=== PATIENT | female | born 1930 | race Caucasian/White ===

== ENCOUNTER 2019-09-13 10:51 | Emergency (ER) | payer MEDICARE, MEDICAID ==
[~2019-09-13] VITALS: Ht 157.4 cm; Wt 47.7 kg
[~2019-09-13 10:51] MED LIST: AMPI500C9 PO; DOCU100C37 PO; IBUP-1773 PO; MIRT15TA PO
--- NOTE | 2019-09-13 11:26 | ED General ---
General Chief Complaint: Respiratory Problems Stated Complaint: RESP DISTRESS Nursing Triage Note: Pt to ED via EMS from [facility]. Pt has dementia and does not speak. EMS reports being called because pt had O2 sat in the 60% and then 80%, for sinus drainage, and "jerking." Upon arrival to ED pt exhibited no signs of distress, pt was calm and not jerking. Pt's O2 sat is 100% on room air. Nursing Sepsis Screen: No Definite Risk History of Present Illness Date Seen by Provider: Sep 13, 2019 Time Seen by Provider: 11:26 Initial Comments 89-year-old female sent in from the [facility]. Patient has dementia and does not provide any information. long-term reports that they called EMS because she had low saturations on pulse ox 60% and then 80%. EMS was called who reports she was 100% on room air when they arrived. long-term also reports that there was some "jerking" the patient has not displayed any evidence of this for either EMS or us. long-term also reports that she's been having some sinus drainage, no reports of fever cough or other systemic complaints Allergies and Home Medications Allergies Coded Allergies: No Known Drug Allergies (Unverified , 07/20/15) Home Medications Ampicillin Trihydrate 500 Mg Capsule, 500 MG PO Q6H Prescribed by: ROSE MARY FIORE on 07/22/15 1309 Docusate Sodium 100 Mg Capsule, 100 MG PO BID Prescribed by: ROSE MARY FIORE on 07/22/15 1308 Ibuprofen 600 Mg Tablet, 600 MG PO Q6H 1/2 tab po q 6 hrs prn Prescribed by: ROSE MARY FIORE on 07/22/15 1308 Mirtazapine 15 Mg Tablet, 15 MG PO HS, (Reported) Patient Home Medication List Home Medication List Reviewed: Yes Review of Systems Review of Systems Constitutional: No chills, No fever Respiratory: see HPI Unable to obtain review of systems outside in the EMS, [facility] report due to patient's dementia Past Rnzvicx-Mizymh-Tjfzio Hx Past Med/Social Hx: Reviewed Nursing Past Med/Soc Hx Patient Social History Alcohol Use: Denies Use Recreational Drug Use: No 2nd Hand Smoke Exposure: No Recent Foreign Travel: No Contact w/Someone Who Travel: No Recent Infectious Disease Expo: No Immunizations Up To Date Date of Influenza Vaccine: May 28, 2015 Past Medical History Surgeries: No Respiratory: No Cardiac: No Neurological: Yes (GETS CONFUSED EASILY) Gastrointestinal: No Musculoskeletal: No Endocrine: No Cancer: No Psychosocial: No Integumentary: No Blood Disorders: No Family Medical History Alcoholism 19 FATHER Physical Exam Vital Signs Vital Signs - First Documented 09/13/19 10:51 Temp 35.9 Pulse 72 Resp 14 B/P (MAP) 134/72 (92) Pulse Ox 100 O2 Delivery Room Air Capillary Refill : Less Than 3 Seconds Height, Weight, BMI Height: 4'10.00" Weight: 98lbs. oz. 44.236963ik; 19.00 BMI Method: General Appearance: No Apparent Distress, WD/WN Neck: Non Tender, Supple Respiratory: Lungs Clear, Normal Breath Sounds Cardiovascular: Regular Rate, Rhythm, No Edema Gastrointestinal: Non Tender, Soft Extremity: Normal Capillary Refill Neurologic/Psychiatric: Other (no acute changes, no abnormal movement) Progress/Results/Core Measures Suspected Sepsis Recent Fever Within 48 Hours: No Infection Criteria Present: None New/Unexplained Altered Menta: No Sepsis Screen: No Definite Risk SIRS Temperature: Pulse: 72 Respiratory Rate: 14 Laboratory Tests 09/13/19 11:55: Blood Pressure 134 /72 Mean: 92 Laboratory Tests 09/13/19 11:55: Results/Orders Lab Results Laboratory Tests Test 09/13/19 11:55 Range/Units Micro Results Microbiology 09/13/19 Influenza Types A,B Antigen (STEPH) - Final, Complete My Orders Orders - CHUCHO BUCK DO Cbc With Automated Diff (09/13/19 11:26) Comprehensive Metabolic Panel (09/13/19 11:26) Influenza A And B Antigens (09/13/19 11:26) Chest Pa/Lat (2 View) (09/13/19 11:26) Vital Signs/I&O 09/13/19 10:51 Temp 35.9 Pulse 72 Resp 14 B/P (MAP) 134/72 (92) Pulse Ox 100 O2 Delivery Room Air Capillary Refill : Less Than 3 Seconds Blood Pressure Mean: 92 Progress Note : Time: 12:44 Progress Note Patient was monitored for an hour and a half and her pulse ox never went below 100%. She was no acute changes and did fine throughout the stay. She will be discharged back to the [facility] in stable condition Departure Impression Primary Impression: Observation and evaluation for suspected conditions not found Disposition: 01 HOME, SELF-CARE Condition: Stable Departure-Patient Inst. Referrals: YASHIRA SANCHEZ MD (PCP/Family) Primary Care Physician Add. Discharge Instructions: Emergency department focuses on treating and ruling out life-threatening diseases. Whenever possible, a diagnosis is given. However, most patients are given an impression based on their history, physical exam, and workup during your brief time in the ER. Information about probable diagnosis and other educational material has been provided. Please take the time to read and understand this information. It is very important that you follow up with a physician as discussed during the visit today. Failure to adhere to your follow-up instructions may lead to severe disability, injury, or so please make sure to keep your appointments or obtain one as requested. Please keep in mind the emergency department is not designed to your primary care or "family doctor" and nonurgent issues are best evaluated by an outpatient physician All discharge instructions reviewed with patient and/or family. Voiced understanding. CHUCHO BUCK DO Sep 13, 2019 11:25
--- NOTE | 2019-09-13 12:27 | Diagnostic Imaging Report ---
INDICATION: Hypoxia. PA and lateral chest obtained at 1213 p.m. Heart and mediastinal silhouette are normal in appearance. The lungs are clear. There is no pneumothorax or pleural fluid. There are compression deformities in the lower thoracic spine of unclear age. IMPRESSION: No acute infiltrate or pneumothorax or pleural fluid. Compression deformities in the lower thoracic spine of uncertain age. Dictated by: Dictated on workstation # [id number]
[2019-09-13 12:46] LABS: BASOPHILS % (AUTO) 1 % (0-10); EOSINOPHILS # (AUTO) 0.1 10^3/uL (0.0-0.3); EOSINOPHILS % (AUTO) 2 % (0-10); HEMATOCRIT 41 % (35-52); HEMOGLOBIN 12.8 G/DL (11.5-16.0); LYMPHOCYTES # (AUTO) 1.2 X 10^3 (1.0-4.0); LYMPHOCYTES % (AUTO) 27 % (12-44); MEAN CORPUSCULAR HEMOGLOBIN 29 PG (25-34); MEAN CORPUSCULAR HGB CONC 31 G/DL (32-36); MEAN CORPUSCULAR VOLUME 95 FL (80-99); MEAN PLATELET VOLUME 11.5 FL (7.4-10.4); MONOCYTES # (AUTO) 0.5 X 10^3 (0.0-1.0); MONOCYTES % (AUTO) 10 % (0-12); NEUTROPHILS # (AUTO) 2.6 X 10^3 (1.8-7.8); NEUTROPHILS % (AUTO) 61 % (42-75); PLATELET COUNT 236 10^3/uL (130-400); WHITE BLOOD COUNT 4.4 10^3/uL (4.3-11.0)
[2019-09-13 13:01] LABS: ALBUMIN 3.7 GM/DL (3.2-4.5); BILIRUBIN,TOTAL 0.5 MG/DL (0.1-1.0); CALCIUM 8.9 MG/DL (8.5-10.1); CREATININE SERUM 1.11 MG/DL (0.60-1.30); POTASSIUM 3.9 MMOL/L (3.6-5.0); TOTAL PROTEIN 6.9 GM/DL (6.4-8.2)
[2019-09-13 13:20] VITALS: BP 121/72
[2019-09-17] MEDS ORDERED: FLUC150T PO (08:59)
[2019-09-17] MEDS ORDERED: CEPH500T PO (08:59)
== END 2019-09-13 13:20 | disposition home or self-care (01) ==
LOC: EDUNIT# 10:51 → ER 10:53
DX: Z03.89 Encounter for observation for other suspected diseases and conditions ruled out (principal); F03.90 Unspecified dementia, unspecified severity, without behavioral disturbance, psychotic disturbance, mood disturbance, and anxiety
CPT/HCPCS: 36415; 71046; 80053; 85025; 87804

== ENCOUNTER 2019-09-15 11:18 | Inpatient (IN) | payer MEDICARE, MEDICAID ==
[2019-09-15] VITALS (12 sets, daily range): BP systolic 108–148; BP diastolic 62–93
[~2019-09-15] VITALS: Ht 160 cm; Wt 49.2 kg
--- NOTE | 2019-09-15 11:36 | NUR ---
UNABLE TO DO NIH DUE PATIENT NOT RESPONDING.
[2019-09-15 11:37] LABS: BASOPHILS % (AUTO) 0 % (0-10); EOSINOPHILS # (AUTO) 0.1 10^3/uL (0.0-0.3); EOSINOPHILS % (AUTO) 1 % (0-10); HEMATOCRIT 41 % (35-52); HEMOGLOBIN 12.9 G/DL (11.5-16.0); LYMPHOCYTES # (AUTO) 3.9 X 10^3 (1.0-4.0); LYMPHOCYTES % (AUTO) 46 % (12-44); MEAN CORPUSCULAR HEMOGLOBIN 30 PG (25-34); MEAN CORPUSCULAR HGB CONC 32 G/DL (32-36); MEAN CORPUSCULAR VOLUME 94 FL (80-99); MEAN PLATELET VOLUME 10.9 FL (7.4-10.4); MONOCYTES # (AUTO) 0.6 X 10^3 (0.0-1.0); MONOCYTES % (AUTO) 7 % (0-12); NEUTROPHILS # (AUTO) 3.9 X 10^3 (1.8-7.8); NEUTROPHILS % (AUTO) 46 % (42-75); PLATELET COUNT 257 10^3/uL (130-400); RED CELL DISTRIBUTION WIDTH 13.8 % (10.0-14.5); WHITE BLOOD COUNT 8.4 10^3/uL (4.3-11.0)
--- NOTE | 2019-09-15 11:41 | NUR ---
PATIENT FALIED ON DYSPHAGIA SCREEING DUE TO SHE IS UNRSPONSIVE
--- NOTE | 2019-09-15 11:52 | NUR ---
DR MENDOZA TO ROOM TO TALK WITH FAMILY
[2019-09-15 11:55] LABS: ALANINE AMINOTRANSFERASE 6 U/L (0-55); ALBUMIN 3.7 GM/DL (3.2-4.5); ALKALINE PHOSPHATASE 104 U/L (40-136); BILIRUBIN,TOTAL 0.6 MG/DL (0.1-1.0); BUN/CREATININE RATIO 10; CALCIUM 8.8 MG/DL (8.5-10.1); CARBON DIOXIDE 21 MMOL/L (21-32); CHLORIDE 107 MMOL/L (98-107); CREATININE SERUM 1.26 MG/DL (0.60-1.30); GFR ESTIMATED 40; GLUCOSE 253 MG/DL (70-105); POTASSIUM 3.5 MMOL/L (3.6-5.0); SODIUM 142 MMOL/L (135-145); TOTAL PROTEIN 6.7 GM/DL (6.4-8.2)
--- NOTE | 2019-09-15 12:21 | Diagnostic Imaging Report ---
PROCEDURE: CT head wo r/o stroke. TECHNIQUE: Multiple contiguous axial images were obtained through the brain without the use of intravenous contrast. Auto Exposure Controls were utilized during the CT exam to meet ALARA standards for radiation dose reduction. Indication: Altered mental status, found unresponsive. Comparison: None. Discussion: Exam is degraded by motion. Significant diffuse brain volume loss is likely age related. White matter hypoattenuation is nonspecific though not greater than expected for age related chronic small vessel ischemic disease. 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 No acute intracranial hemorrhage, mass, midline shift, or hydrocephalus. The orbits, sinuses, mastoid air cells, and calvarium are unremarkable. Impression: 1. Senescent changes as described. No acute intracranial abnormality identified. Dictated by: Dictated on workstation # [id number]
--- NOTE | 2019-09-15 12:26 | Diagnostic Imaging Report ---
INDICATION: Dyspnea, altered mental status. COMPARISON: 09/13/2019. DISCUSSION: Single portable upright view of the chest was obtained. Low lung volumes. Heart borders are obscured. No consolidation, pleural fluid, or pneumothorax. No osseous abnormality. IMPRESSION: 1. Negative portable chest. Dictated by: Dictated on workstation # [id number]
[2019-09-15 12:33] LABS: FIBRIN DEGRADATION PRODUCTS 4.68 UG/ML (0.00-0.49)
--- NOTE | 2019-09-15 12:36 | NUR ---
[facility] CALLED UPDATE GIVEN.
[2019-09-15] MEDS ORDERED: ONDANSETRON 4 MG/2 ML (SDV) Z0FRAN IVP ONE (13:00)
[2019-09-15] MEDS ORDERED: morphine INJ 10 MG/ML 1ML (SYR OR VIAL) IVP STA (13:42)
[2019-09-15] MEDS ORDERED: IOHEXOL 350 MG/ML 100 ML (OMNIPAQUE 350) VIAL IV ONE (14:15)
[2019-09-15] MEDS ORDERED: NS 100 ML (IVPB) BAG IV ONE (14:15)
[2019-09-15] MEDS ORDERED: HOLD METFORMIN - RECEIVED CONTRAST 20 ML VIAL IV SCH (14:15)
--- NOTE | 2019-09-15 14:30 | ED General ---
General Chief Complaint: Unresponsive Stated Complaint: RESP ISSUES Nursing Triage Note: ARRIVED VIA EMS FROM [facility]. WAS FOUND UNRESPONSIVE AT [facility]. EMS REPORTS POLICE SCOOPED COPIOUS AMTS OF CEREAL OUT OF HER MOUTH ON THEIR ARRIVAL. ARRIVED TO ER UNRESPONSIVE ET BEING BAGGED WITH A BVM. Nursing Sepsis Screen: Possible Sepsis Risk Source of Information: EMS, Family Exam Limitations: Physical Impairments History of Present Illness Date Seen by Provider: Sep 15, 2019 Time Seen by Provider: 11:20 Initial Comments This 89-year-old woman presents to the emergency room via EMS from [facility] where she had an unresponsive episode and was choking. It is unclear whether she became unresponsive and choked or choked and then became unresponsive. She was eating Cheerios at the time. Please officer who was first on scene swept food from her mouth. CODE STATUS was not immediately accessible. EMS provided respiratory assist with an Ambu bag. Patient was found to be a DO NOT RESUSCITATE. She was transferred to the emergency room where she was maintaining oxygen saturations on a high flow mask. Patient has advanced dementia. She is able to walk and feed herself but otherwise requires assistance with activities of daily living. She has a son in [facility] who is the power of criminal defense attorney. Family does report she has difficulty eating and requires soft foods. Allergies and Home Medications Allergies Coded Allergies: No Known Drug Allergies (Unverified , 07/20/15) Home Medications Ampicillin Trihydrate 500 Mg Capsule, 500 MG PO Q6H Prescribed by: ROSE MARY FIORE on 07/22/15 1309 Docusate Sodium 100 Mg Capsule, 100 MG PO BID Prescribed by: ROSE MARY FIORE on 07/22/15 1308 Ibuprofen 600 Mg Tablet, 600 MG PO Q6H 1/2 tab po q 6 hrs prn Prescribed by: ROSE MARY FIORE on 07/22/15 1308 Mirtazapine 15 Mg Tablet, 15 MG PO HS, (Reported) Patient Home Medication List Home Medication List Reviewed: Yes Review of Systems Review of Systems Constitutional: no symptoms reported EENTM: no symptoms reported Respiratory: see HPI Cardiovascular: no symptoms reported Gastrointestinal: no symptoms reported Genitourinary: no symptoms reported Musculoskeletal: no symptoms reported Skin: no symptoms reported Psychiatric/Neurological: See HPI Hematologic/Lymphatic: No Symptoms Reported Immunological/Allergic: no symptoms reported Past Mruaedq-Izkksp-Vvonkv Hx Past Med/Social Hx: Reviewed Nursing Past Med/Soc Hx Patient Social History Alcohol Use: Denies Use Recreational Drug Use: No Smoking Status: Unknown if Ever Smoked 2nd Hand Smoke Exposure: No Recent Foreign Travel: No Contact w/Someone Who Travel: No Recent Infectious Disease Expo: No Immunizations Up To Date Date of Influenza Vaccine: May 28, 2015 Past Medical History Surgeries: No Respiratory: No Cardiac: No Neurological: Yes Dementia Genitourinary: No Gastrointestinal: No Musculoskeletal: No Endocrine: No Cancer: No Psychosocial: No Integumentary: No Blood Disorders: No Family Medical History Alcoholism 19 FATHER Physical Exam Vital Signs Vital Signs - First Documented 09/15/19 11:18 Temp 35.0 Pulse 98 Resp 20 B/P (MAP) 130/76 (94) Pulse Ox 98 O2 Delivery OxyMask O2 Flow Rate 8.00 Capillary Refill : Less Than 3 Seconds Height, Weight, BMI Height: 4'10.00" Weight: 98lbs. oz. 44.896092ty; 17.00 BMI Method: General Appearance: No Apparent Distress, WD/WN, Thin, Other (unresponsive) HEENT: PERRL/EOMI, Normal ENT Inspection, Other (small contents of food evacuated from the oral pharynx with suction.) Neck: Normal Inspection Respiratory: Lungs Clear, No Accessory Muscle Use, No Respiratory Distress, Stridor Cardiovascular: No Edema, No Murmur, Tachycardia Gastrointestinal: Normal Bowel Sounds, Non Tender, Soft Extremity: Normal Inspection, No Pedal Edema Neurologic/Psychiatric: Other (unresponsive) Skin: Normal Color, Warm/Dry Progress/Results/Core Measures Suspected Sepsis Recent Fever Within 48 Hours: No Infection Criteria Present: Suspected New Infection New/Unexplained Altered Menta: No Sepsis Screen: Possible Sepsis Risk SIRS Temperature: Pulse: 98 Respiratory Rate: 20 Laboratory Tests 09/15/19 11:30: White Blood Count 8.4 Blood Pressure 130 /76 Mean: 94 Laboratory Tests 09/15/19 11:30: Creatinine 1.26, INR Comment 1.0, Platelet Count 257, Total Bilirubin 0.6 Results/Orders Lab Results Laboratory Tests Test 09/15/19 11:30 09/15/19 15:17 Range/Units White Blood Count 8.4 4.3-11.0 10^3/uL Red Blood Count 4.36 4.35-5.85 10^6/uL Hemoglobin 12.9 11.5-16.0 G/DL Hematocrit 41 35-52 % Mean Corpuscular Volume 94 80-99 FL Mean Corpuscular Hemoglobin 30 25-34 PG Mean Corpuscular Hemoglobin Concent 32 32-36 G/DL Red Cell Distribution Width 13.8 10.0-14.5 % Platelet Count 257 130-400 10^3/uL Mean Platelet Volume 10.9 H 7.4-10.4 FL Neutrophils (%) (Auto) 46 42-75 % Lymphocytes (%) (Auto) 46 H 12-44 % Monocytes (%) (Auto) 7 0-12 % Eosinophils (%) (Auto) 1 0-10 % Basophils (%) (Auto) 0 0-10 % Neutrophils # (Auto) 3.9 1.8-7.8 X 10^3 Lymphocytes # (Auto) 3.9 1.0-4.0 X 10^3 Monocytes # (Auto) 0.6 0.0-1.0 X 10^3 Eosinophils # (Auto) 0.1 0.0-0.3 10^3/uL Basophils # (Auto) 0.0 0.0-0.1 10^3/uL Prothrombin Time 14.0 12.2-14.7 SEC INR Comment 1.0 0.8-1.4 Activated Partial Thromboplast Time 26 24-35 SEC D-Dimer 4.68 H 0.00-0.49 UG/ML Sodium Level 142 135-145 MMOL/L Potassium Level 3.5 L 3.6-5.0 MMOL/L Chloride Level 107 98-107 MMOL/L Carbon Dioxide Level 21 21-32 MMOL/L Anion Gap 14 5-14 MMOL/L Blood Urea Nitrogen 12 7-18 MG/DL Creatinine 1.26 0.60-1.30 MG/DL Estimat Glomerular Filtration Rate 40 BUN/Creatinine Ratio 10 Glucose Level 253 H 70-105 MG/DL Calcium Level 8.8 8.5-10.1 MG/DL Corrected Calcium 9.0 8.5-10.1 MG/DL Total Bilirubin 0.6 0.1-1.0 MG/DL Aspartate Amino Transf (AST/SGOT) 22 5-34 U/L Alanine Aminotransferase (ALT/SGPT) 6 0-55 U/L Alkaline Phosphatase 104 40-136 U/L Troponin I < 0.028 <0.028 NG/ML Total Protein 6.7 6.4-8.2 GM/DL Albumin 3.7 3.2-4.5 GM/DL My Orders Orders - RENEE CASAREZ MD Cbc With Automated Diff (09/15/19 11:31) Protime With Inr (09/15/19 11:31) Partial Thromboplastin Time (09/15/19 11:31) Comprehensive Metabolic Panel (09/15/19 11:31) Fibrin Degradation Products (09/15/19 11:31) Troponin I (09/15/19 11:31) Ua Culture If Indicated (09/15/19 11:31) Chest 1 View, Ap/Pa Only (09/15/19 11:31) Catheter(Urinary) Insert & Ass 03,15 (09/15/19 11:31) Ekg Tracing (09/15/19 11:31) Nothing By Mouth (09/15/19 Dinner) Accucheck Stat ONCE (09/15/19 11:31) Ed Iv/Invasive Line Start (09/15/19 11:31) Ed Iv/Invasive Line Start (09/15/19 11:31) Vital Signs Stroke Patient Q15M (09/15/19 11:31) Ct Head Wo-R/O Stroke (09/15/19 11:31) O2 (09/15/19 11:31) Intake & Output 06,14,22 (09/15/19 11:31) Monitor-Rhythm Ecg Trace Only (09/15/19 11:31) Dysphagia Screening Tool (09/15/19 11:31) Post Thrombolytic Adminstratio (09/15/19 11:31) Lipid Panel (09/16/19 06:00) Ondansetron Injection (Zofran Injectio (09/15/19 13:00) Ct Angio Chest W (09/15/19 13:40) Ct Neck (Soft Tissue) W (09/15/19 13:40) Morphine Injection (Morphine Injection (09/15/19 13:42) Iohexol Injection (Omnipaque 350 Mg/Ml 1 (09/15/19 14:15) Received Contrast (Hold Metformin- Contr (09/15/19 14:15) Ns (Ivpb) (Sodium Chloride 0.9% Ivpb Bag (09/15/19 14:15) Iqbal Cath (09/15/19 14:47) Zosyn 4.5 Gm (X1)Ed Only (09/15/19 15:30) Medications Given in ED Current Medications Medications Dose Ordered Sig/Marcio Route Start Time Stop Time Status Last Admin Dose Admin Iohexol 100 ml ONCE ONCE IV 09/15/19 14:15 09/15/19 14:16 DC 09/15/19 14:23 52 ML Ondansetron HCl 4 mg ONCE ONCE IVP 09/15/19 13:00 09/15/19 13:01 DC 09/15/19 13:13 4 MG Sodium Chloride 100 ml ONCE ONCE IV 09/15/19 14:15 09/15/19 14:16 DC 09/15/19 14:23 80 ML Vital Signs/I&O 09/15/19 09/15/19 11:18 11:18 Temp 35.0 Pulse 98 Resp 20 B/P (MAP) 130/76 (94) Pulse Ox 98 O2 Delivery OxyMask OxyMask O2 Flow Rate 8.00 15.00 Capillary Refill : Less Than 3 Seconds Blood Pressure Mean: 94 Progress Note : Progress Note Stroke activation was paged. Patient's oxygen saturation was maintained on high flow mask. Labs were unremarkable. Chest x-ray was unremarkable. CT of the head was unremarkable. I discussed the case with Dr. Caruso, stroke neurologist at [facility] at 12:50. She did not believe patient's presentation was consistent with stroke. Patient gradually became more alert and was moving all 4 extremities. She did develop stridor. I had an extensive conversation with the patient's son and [id number]. Options were reviewed. We elected to proceed with a CT scan of the chest and soft tissues of the neck to investigate causes of her respiratory status including aspiration and foreign body. CT scans revealed food bolus and contents in the throat, under the epiglottis, and in the trachea. Case was reviewed with Dr. Diaz. He is agreeable to perform bronchoscopy to remove food boluses and evacuate any debris in the trachea. Family is aware that they will need to revoke the DO NOT INTUBATE portion of the DO NOT RESUSCITATE to support her during bronchoscopy. Patient's son is agreeable to this. We both feel this is an appropriate course of action and the compassionate course of action to alleviate the patient's difficulty breathing. Morphine 2 mg was administered to help with pain and air hunger. Patient remained stable until transfer to ICU. ECG Initial ECG Impression Date: Sep 15, 2019 Initial ECG Impression Time: 11:42 Initial ECG Rate: 92 Initial ECG Rhythm: Normal Sinus Comment Normal sinus rhythm, no ST elevation or depression. No abnormal intervals or axis deviation. Diagnostic Imaging Diagonstic Imaging: CT Plain Films/CT/US/NM/MRI: head Comments CT head viewed by me and report reviewed. See report below: NAME: JUAN DANIELS [facility] REC#: [id number] PT STATUS: REG ER : 1930 PHYSICIAN: RENEE CASAREZ MD ADMIT DATE: 09/15/19/ER Signed Date of Exam:09/15/19 CT HEAD WO-R/O STROKE PROCEDURE: CT head wo r/o stroke. TECHNIQUE: Multiple contiguous axial images were obtained through the brain without the use of intravenous contrast. Auto Exposure Controls were utilized during the CT exam to meet ALARA standards for radiation dose reduction. Indication: Altered mental status, found unresponsive. Comparison: None. Discussion: Exam is degraded by motion. Significant diffuse brain volume loss is likely age related. White matter hypoattenuation is nonspecific though not greater than expected for age related chronic small vessel ischemic disease. 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 No acute intracranial hemorrhage, mass, midline shift, or hydrocephalus. The orbits, sinuses, mastoid air cells, and calvarium are unremarkable. Impression: 1. Senescent changes as described. No acute intracranial abnormality identified. Dictated by: Dictated on workstation # [id number] Dict: 09/15/19 1214 Trans: 09/15/19 1408 [id number] Interpreted by: ATIYA WOODWARD MD Electronically signed by: ATIYA WOODWARD MD 09/15/19 1408 Diagonstic Imaging: Xray Plain Films/CT/US/NM/MRI: chest Comments Chest x-ray viewed by me and report reviewed. See report below: NAME: [facility]ANI[facility] REC#: [id number] PT STATUS: REG ER : 1930 PHYSICIAN: RENEE CASAREZ MD ADMIT DATE: 09/15/19/ER Signed Date of Exam:09/15/19 CHEST 1 VIEW, AP/PA ONLY INDICATION: Dyspnea, altered mental status. COMPARISON: 09/13/2019. DISCUSSION: Single portable upright view of the chest was obtained. Low lung volumes. Heart borders are obscured. No consolidation, pleural fluid, or pneumothorax. No osseous abnormality. IMPRESSION: 1. Negative portable chest. Dictated by: Dictated on workstation # [id number] Dict: 09/15/19 1224 Trans: 09/15/19 1408 AS6 [id number] Interpreted by: ATIYA WOODWARD MD Electronically signed by: ATIYA WOODWARD MD 09/15/19 1408 Diagonstic Imaging: CT Plain Films/CT/US/NM/MRI: other (soft tissues neck) Comments CT soft tissues neck viewed by me and report reviewed. See report below: NAME: [facility] REC#: [id number] PT STATUS: REG ER : 1930 PHYSICIAN: RENEE CASAREZ MD ADMIT DATE: 09/15/19/ER Signed Date of Exam:09/15/19 CT NECK (SOFT TISSUE) W PROCEDURE: CT neck soft tissue with contrast. TECHNIQUE: Multiple contiguous axial images were obtained through the neck after the administration of contrast. Auto Exposure Controls were utilized during the CT exam to meet ALARA standards for radiation dose reduction. INDICATION: Shortness of air. COMPARISON: CTA chest performed concurrently. FINDINGS: There is an ovoid low-attenuation circumscribed mass-like focus located along the inferior margin of the uvula. Below this, there are some frothy secretions present. The airway is widely patent elsewhere and this mass-like focus does not occlude the airway. Lung apices are clear. Neck arteries are unremarkable. No concerning abnormality in the cervical spine. Global atrophy is seen within the visualized aspects of the brain. IMPRESSION: 1. There is a nonaggressive mass-like lesion at the inferior aspect of the uvula which could represent a globular focus of retained secretions. Otherwise, this may represent a fatty exophytic tumor arising from the uvula, which is felt less likely as this would be very rare. Correlation with direct visualization is suggested. Dictated by: Dictated on workstation # [id number] Dict: 09/15/19 1435 Trans: 09/15/19 1451 [id number] [id number] Interpreted by: RAPHAEL NELSON MD Electronically signed by: RAPHAEL NELSON MD 09/15/19 1454 Diagonstic Imaging: CT Plain Films/CT/US/NM/MRI: chest Comments CT angiogram chest viewed by me and report reviewed. See report below: NAME: [facility] REC#: [id number] PT STATUS: REG ER : 1930 PHYSICIAN: RENEE CASAREZ MD ADMIT DATE: 09/15/19/ER Draft Date of Exam:09/15/19 CT ANGIO CHEST W PROCEDURE: CT angiography of the chest with contrast. TECHNIQUE: Multiple contiguous axial images were obtained through the chest after uneventful bolus administration of intravenous contrast. 3D reconstructed CTA MIP acquisitions were also performed. Auto Exposure Controls were utilized during the CT exam to meet ALARA standards for radiation dose reduction. Indication: Dyspnea. Unresponsive. Comparison: None. Discussion: No focal consolidation identified. No pulmonary embolus identified. Subsegmental atelectasis is noted within the lung bases. Normal heart size. The thoracic aorta is normal in caliber and configuration. No pathologically enlarged lymph nodes identified. The visualized upper abdomen is unremarkable. Multiple compression deformities are noted throughout the thoracic and lumbar spine involving the T2, T4, T11, T12, L1, and L2 vertebral bodies as visualized, age indeterminate. Impression: 1. No pulmonary embolus or other acute abnormality identified within the chest. 2. Multiple age-indeterminate compression deformities within the thoracic and lumbar spine. Dictated on workstation # [id number] Dict: 09/15/19 1435 Trans: 09/15/19 1441 TS [id number] Interpreted by: ATIYA WOODWARD MD Departure Communication (Admissions) Time/Spoke to Admitting Phy: 15:16 Dr. De Oliveira Time/Spoke to Consulting Phy: 14:48 Dr. Diaz Impression Primary Impression: Aspiration of food Qualified Codes: T17.920A - Food in respiratory tract, part unspecified causing asphyxiation, initial encounter Additional Impressions: Unresponsive episode Hypoxia Advanced dementia Disposition: ADMITTED INPATIENT Condition: Stable Admissions Decision to Admit Reason: Admit from ER (General) Decision to Admit/Date: Sep 15, 2019 Time/Decision to Admit Time: 14:48 Departure-Patient Inst. Referrals: YASHIRA SANCHEZ MD (PCP/Family) Primary Care Physician Copy Copies To 1: YASHIRA SANCHEZ MD, JOSHUA T MD Sep 15, 2019 14:30
--- NOTE | 2019-09-15 14:41 | Diagnostic Imaging Report ---
PROCEDURE: CT angiography of the chest with contrast. TECHNIQUE: Multiple contiguous axial images were obtained through the chest after uneventful bolus administration of intravenous contrast. 3D reconstructed CTA MIP acquisitions were also performed. Auto Exposure Controls were utilized during the CT exam to meet ALARA standards for radiation dose reduction. Indication: Dyspnea. Unresponsive. Comparison: None. Discussion: No focal consolidation identified. No pulmonary embolus identified. Subsegmental atelectasis is noted within the lung bases. Normal heart size. The thoracic aorta is normal in caliber and configuration. No pathologically enlarged lymph nodes identified. The visualized upper abdomen is unremarkable. Multiple compression deformities are noted throughout the thoracic and lumbar spine involving the T2, T4, T11, T12, L1, and L2 vertebral bodies as visualized, age indeterminate. Impression: 1. No pulmonary embolus or other acute abnormality identified within the chest. 2. Multiple age-indeterminate compression deformities within the thoracic and lumbar spine. Dictated by: Dictated on workstation # [id number]
--- NOTE | 2019-09-15 14:45 | Diagnostic Imaging Report ---
PROCEDURE: CT neck soft tissue with contrast. TECHNIQUE: Multiple contiguous axial images were obtained through the neck after the administration of contrast. Auto Exposure Controls were utilized during the CT exam to meet ALARA standards for radiation dose reduction. INDICATION: Shortness of air. COMPARISON: CTA chest performed concurrently. FINDINGS: There is an ovoid low-attenuation circumscribed mass-like focus located along the inferior margin of the uvula. Below this, there are some frothy secretions present. The airway is widely patent elsewhere and this mass-like focus does not occlude the airway. Lung apices are clear. Neck arteries are unremarkable. No concerning abnormality in the cervical spine. Global atrophy is seen within the visualized aspects of the brain. IMPRESSION: 1. There is a nonaggressive mass-like lesion at the inferior aspect of the uvula which could represent a globular focus of retained secretions. Otherwise, this may represent a fatty exophytic tumor arising from the uvula, which is felt less likely as this would be very rare. Correlation with direct visualization is suggested. Dictated by: Dictated on workstation # [id number]
[2019-09-15 15:23] LABS: BILIRUBIN,URINE NEGATIVE (NEGATIVE); CLARITY,URINE SL CLOUDY; COLOR,URINE YELLOW; GLUCOSE, URINE (UA) NEGATIVE (NEGATIVE); KETONES,URINE 1+ (NEGATIVE); LEUKOCYTE ESTERASE ,URINE TRACE (NEGATIVE); NITRITE,URINE NEGATIVE (NEGATIVE); PH,URINE 5.5 (5-9); PROTEIN,URINE NEGATIVE (NEGATIVE)
[2019-09-15 15:25] LABS: RBC,URINE RARE /HPF; WBC,URINE RARE /HPF
[2019-09-15 15:26] LABS: BACTERIA,URINE LARGE /HPF; HYALINE CASTS, URINE RARE /LPF; SQUAMOUS EPITHELIAL CELL,UR RARE /HPF
[2019-09-15] MEDS ORDERED: proPOfol 200 MG/20 ML (DIPRIVAN) VIAL IV ONE (15:27)
[2019-09-15] MEDS ORDERED: PIPERACILLIN SODIUM/TAZOBACTAM 4.5 GM in NS (IVPB) 100 ML IV ONE (15:30)
--- NOTE | 2019-09-15 15:40 | NUR ---
JUAN DANIELS Sameera admitted to room CU9-1, with an admitting diagnosis of ASPIRATION, on 09/15/19 from ER via CART, accompanied by STAFF.JUAN DANIELS introduced to surroundings, call light, bed controls, phone, TV, temperature control, lights, meal times, smoking policy, visitor policy, side rail policy, bathrooms and showers. Patient Rights given to patient in the handbook. JUAN DANIELS verbalizes understanding that [facility] is not responsible for the loss or damage to any personal effects or valuables that are kept in the patients posession during their hospitalization. The following Patient Care Plans were discussed with the PT: Discharge Planning, DYSPHAGIA,KNOWLEDGE DEFICIT, and IMPAIRED SWALLOWING. JUAN DANIELS verbalizes understanding of Interdisciplinary Patient Education. Patient and family were informed about the Rapid Response Team and its purpose.
[2019-09-15] MEDS ORDERED: PROPOFOL DRIP (ICU) 100 ML IV ONE (15:44)
[2019-09-15] MEDS ORDERED: LACTATED RINGERS 1,000 ML IV ONE (15:44)
--- NOTE | 2019-09-15 15:48 | NUR ---
TIMELINE NOTE- 1548- PT O2 SATS 78% ON 15L OXYMASK; RT BEGAN BAGGING PT, SATS INCREASED TO LOW 90'S WHILE BAGGING. DR LO INFORMED OF PT STATUS AND IS EN ROUTE TO HOSPITAL. 1600-DR LO IN ROOM 1602-LR RUNNING WIDE OPEN PER DR LO 1604-DR LO BEGAN BRONCH. OBSTRUCTION REMOVED (PIECE OF HOTDOG AND BREAKFAST SAUSAGE) 1605-4MG IV VERSED GIVEN 1606-5ML OF PROPOFOL GIVEN IV 1606-PT INTUBATED W/ SIZE 8 ETT. 22 @ LIP 1617- BRONCH COMPLETED. 1620-OG INSERTED W/O DIFFICULTLY AND SET TO LIS VENT SETTINGS: AC MODE, TV 350, FIO2 35%, PEEP 5, RR 24
[2019-09-15] MEDS ORDERED: NS IV 1000 ML 1,000 ML ONE (15:49)
[2019-09-15] MEDS ORDERED: ONDANSETRON 4 MG/2 ML (SDV) Z0FRAN IV PRN (16:00)
[2019-09-15] MEDS ORDERED: CATHETER FLUSH 10 ML SYR IV PRN (16:00)
[2019-09-15] MEDS: LACTATED RINGERS 1,000 ML IV SCH ×2 (16:22→19:39)
[2019-09-15] MEDS: PROPOFOL DRIP (ICU) 100 ML IV SCH (16:23)
--- NOTE | 2019-09-15 16:26 | Pulmonary Consultation ---
History of Present Illness History of Present Illness Date Seen by Provider: Sep 16, 2019 Time Seen by Provider: 16:00 Date of Admission History of Present Illness 89yo with hx of severe dementia presented to ED secondary to acute respiratory failure after aspirating on food. PT was found unresponsive. Police scooped copious amounts of food out of her mouth. Pt was in acute respiratory distress upon ED admission. CT scan confirms aspiration and current aspirate material in mouth, trachea, and lungs. I was called to bedside emergently secondary to worsening respiratory failure since ED admission. Family is in agreement with bronchoscopy and intubation for this acute event only. Unable to obtain ROS secondary to acute respiratory failure. Allergies and Home Medications Allergies Coded Allergies: No Known Drug Allergies (Unverified , 07/20/15) Home Medications Ampicillin Trihydrate 500 Mg Capsule, 500 MG PO Q6H Prescribed by: ROSE MARY FIORE on 07/22/15 1309 Docusate Sodium 100 Mg Capsule, 100 MG PO BID Prescribed by: ROSE MARY FIORE on 07/22/15 1308 Ibuprofen 600 Mg Tablet, 600 MG PO Q6H 1/2 tab po q 6 hrs prn Prescribed by: ROSE MARY FIORE on 07/22/15 1308 Mirtazapine 15 Mg Tablet, 15 MG PO HS, (Reported) Past Rujzlty-Zdghvd-Clphjj Hx Past Med/Social Hx: Reviewed Nursing Past Med/Soc Hx Patient Social History Alcohol Use: Denies Use Recreational Drug Use: No Smoking Status: Unknown if Ever Smoked 2nd Hand Smoke Exposure: No Recent Foreign Travel: No Contact w/Someone Who Travel: No Recent Infectious Disease Expo: No Immunizations Up To Date Date of Influenza Vaccine: May 28, 2015 Past Medical History Surgeries: No Respiratory: No Cardiac: No Neurological: Yes Dementia Genitourinary: No Gastrointestinal: No Musculoskeletal: No Endocrine: No Cancer: No Psychosocial: No Integumentary: No Blood Disorders: No Family Medical History Alcoholism 19 FATHER Review of Systems Time Seen by Provider: 06:55 Sepsis Event Evaluation Height, Weight, BMI Height: 4'10.00" Weight: 98lbs. oz. 44.179058fo; 17.00 BMI Method: Exam Exam Vital Signs Date Time Temp Pulse Resp B/P (MAP) Pulse Ox O2 Delivery O2 Flow Rate FiO2 09/15/19 16:23 91/53 09/15/19 15:45 118 09/15/19 15:28 113 18 127/68 93 OxyMask 10.00 09/15/19 11:18 35.0 98 20 130/76 (94) 98 OxyMask 15.00 09/15/19 11:18 OxyMask 8.00 Height & Weight Height: 4'10.00" Weight: 98lbs. oz. 44.213609hk; 17.00 BMI Method: General Appearance: WD/WN, Severe Distress, Thin, Other (unresponsive) HEENT: PERRL/EOMI, Normal ENT Inspection, Other (small contents of food evacuated from the oral pharynx with suction.) Neck: Normal Inspection Respiratory: Accessory Muscle Use, Decreased Breath Sounds, Respiratory Distress, Rhonci Cardiovascular: No Edema, No Murmur, Tachycardia Capillary Refill: Less Than 3 Seconds Extremity: Normal Inspection, No Pedal Edema Neurologic/Psychiatric: Other (unresponsive) Skin: Normal Color, Warm/Dry Lymphatic: No Adenopathy Results Lab Laboratory Tests 09/15/19 11:30 Assessment/Plan Assessment/Plan Acute respiratory failure secondary to aspiration -Will proceed with intubation and bronchoscopy -Start Zosyn and solumedrol -Family is ok for short term intubation for this acute event only. Severe dementia -Pt will probably need hospice care upon discharge Dysphagia HENRY LO DO Sep 15, 2019 16:26
--- NOTE | 2019-09-15 16:27 | Pulmonary Procedures ---
Pulmonary Procedures Date of Procedure Date of Service: Sep 15, 2019 Bronch Emergent bronchoscopy secondary to acute respiratory failure and acute aspiration . multiple passes made with bronchoscope and forceps made to clear aspirated food material. Bilateral wash was also obtained for cultures. Preop DX Aspiration Postop DX: 1.5" hot dog found in posterior pharynx. Multiple pieces of aspiration found mostly RML and RLL. Complications: none After informed consent obtained and formal time out pt was sedated using Fentanyl propofol and Versed. Bronchoscope was advanced through the ET tube. 1% lidocaine was used to anesthetize vocal cords, epiglottis, faraz, and left/right main stem bronchus. An anatomical tour was undertaken down to the segmental bronchi bilaterally. No endobronchial lesions noted. Emergent bro nchoscopy secondary to acute respiratory failure and acute aspiration . multiple passes made with bronchoscope and forceps made to clear aspirated food material. Pt tolerated procedure well. No complications noted. Stat CXR is pending. HENRY LO DO Sep 15, 2019 16:27
--- NOTE | 2019-09-15 16:40 | NUR ---
PT'S FAMILY BROUGHT BACK TO ROOM.
[2019-09-15] MEDS ORDERED: methylPREDNISolone 125 MG (Solu-MEDROL) VIAL IVP NR (16:45)
[2019-09-15] MEDS ORDERED: MIDAZOLAM 5 MG/5 ML (VERSED) VIAL INJ ONE (16:47)
--- NOTE | 2019-09-15 16:58 | Diagnostic Imaging Report ---
Procedure: Chest 1 view, AP/PA only. Indication: Intubation. Comparison: 09/15/2019. Findings: ET tube has tip 2 cm above the faraz. Enteric tube enters the stomach and has tip terminating in its mid aspect. Lungs are clear. No pleural effusion or pneumothorax. Normal cardiac mediastinal silhouette. Impression: 1. ET tube has tip 2 cm above the faraz.. Consider approximately 1 cm retraction. 2. Well-positioned enteric tube. Dictated by: Dictated on workstation # [id number]
--- NOTE | 2019-09-15 17:14 | NUR ---
chest xray results given to dr cui. Addendum: 09/15/19 at 1715 by DIONICIO THOMAS RN no new orders received
[2019-09-15] MEDS ORDERED: RT-ALBUTEROL/IPRATROPIUM 3 ML (DUONEB) VIAL ONE (17:46)
[2019-09-15] MEDS: inSUlin ASPART (NovoLOG) 1 UNIT/0.01 ML (CHARGE PER UNIT) SQ SCH ×2 (18:04→23:07)
[2019-09-15] MEDS: RT-ALBUTEROL/IPRATROPIUM 3 ML (DUONEB) VIAL INH SCH ×2 (18:12→21:45)
[2019-09-15 19:17] LABS: ABG BASE EXCESS 2.1 MMOL/L (-2.5-2.5); ABG OXYGEN SATURATION 98 % (94-100); ABG PCO2 35 MMHG (35-45); ABG PH 7.47 (7.37-7.43); ABG PO2 121 MMHG (79-93); ABG TCO2 26.8 MMOL/L (21.0-31.0); ALLENS TEST YES-POS; INSPIRED O2 35; PATIENT TEMP 35.9; VENTILATOR YES
[2019-09-15] MEDS: FAMOTIDINE 20MG/2ML IV (PEPCID) IV SCH (20:26)
[2019-09-15] MEDS: PIPERACILLIN/TAZO 4.5 GM/NS 100 ML IV SCH ×2 (21:17)
[2019-09-16] VITALS (16 sets, daily range): BP systolic 115–156; BP diastolic 59–89
[2019-09-16] MEDS: methylPREDNISolone 40 MG/ML (Solu-MEDROL) VIAL IV SCH ×3 (00:07→11:16)
[2019-09-16] MEDS: PROPOFOL DRIP (ICU) 100 ML IV SCH (02:22)
[2019-09-16] MEDS: LACTATED RINGERS 1,000 ML IV SCH (02:22)
[2019-09-16] MEDS: RT-ALBUTEROL/IPRATROPIUM 3 ML (DUONEB) VIAL INH SCH ×6 (02:34→23:00)
[2019-09-16 03:53] LABS: ABG BASE EXCESS 2.3 MMOL/L (-2.5-2.5); ABG OXYGEN SATURATION 78 % (94-100); ABG PCO2 42 MMHG (35-45); ABG PH 7.42 (7.37-7.43); ABG PO2 47 MMHG (79-93); ALLENS TEST POSITIVE; INSPIRED O2 21%; PATIENT TEMP 35.9; VENTILATOR YES
[2019-09-16 04:12] LABS: BASOPHILS % (AUTO) 0 % (0-10); EOSINOPHILS % (AUTO) 0 % (0-10); HEMATOCRIT 40 % (35-52); HEMOGLOBIN 12.9 G/DL (11.5-16.0); LYMPHOCYTES # (AUTO) 1.2 X 10^3 (1.0-4.0); LYMPHOCYTES % (AUTO) 8 % (12-44); MEAN CORPUSCULAR HEMOGLOBIN 30 PG (25-34); MEAN CORPUSCULAR HGB CONC 32 G/DL (32-36); MEAN CORPUSCULAR VOLUME 93 FL (80-99); MEAN PLATELET VOLUME 11.3 FL (7.4-10.4); MONOCYTES # (AUTO) 0.4 X 10^3 (0.0-1.0); MONOCYTES % (AUTO) 3 % (0-12); NEUTROPHILS # (AUTO) 13.7 X 10^3 (1.8-7.8); NEUTROPHILS % (AUTO) 90 % (42-75); PLATELET COUNT 188 10^3/uL (130-400); RED CELL DISTRIBUTION WIDTH 13.5 % (10.0-14.5); WHITE BLOOD COUNT 15.3 10^3/uL (4.3-11.0)
[2019-09-16 04:26] LABS: CREATININE SERUM 0.97 MG/DL (0.60-1.30); PHOSPHORUS 2.9 MG/DL (2.3-4.7); POTASSIUM 4.1 MMOL/L (3.6-5.0)
[2019-09-16] MEDS: PIPERACILLIN/TAZO 4.5 GM/NS 100 ML IV SCH ×4 (05:57→15:34)
[2019-09-16] MEDS ORDERED: KCL 20 MEQ TAB (K-DUR) PO SCH (06:00)
[2019-09-16] MEDS ORDERED: POTASSIUM CL 10MEQ/50ML IVPB 50 ML IV SCH (06:00)
[2019-09-16] MEDS ORDERED: MAGNESIUM 1 GM/100 ML IVPB 100 ML IV SCH (06:00)
[2019-09-16 06:08] LABS: LYMPHOCYTES % (MANUAL) 6 %; MONOCYTES % (MANUAL) 2 %; NEUTROPHILS % (MANUAL) 92 %
--- NOTE | 2019-09-16 06:49 | Pulmonary Procedures ---
Pulmonary Procedures Date of Procedure Date of Service: Sep 15, 2019 (late note ) Reason for Intubation: acute respiratory failure and aspiration Time of Intubation: 16:00 Intubation Method: orotracheal Tube Size: 8 Medications: Fentanyl, Propofol, Versed Positive End Tide CO2: Yes Breath Sounds after Intubation: bilateral-equal Intubation Complications: no complications Post Intubation Xray: Yes HENRY LO DO Sep 16, 2019 06:49
[2019-09-16] MEDS: inSUlin ASPART (NovoLOG) 1 UNIT/0.01 ML (CHARGE PER UNIT) SQ SCH ×3 (06:52→18:51)
--- NOTE | 2019-09-16 07:04 | Pulmonary Progress Note ---
Subjective Time Seen by a Provider: 06:58 Subjective/Events-last exam sedated on vent Sepsis Event Evaluation Height, Weight, BMI Height: 4'10.00" Weight: 98lbs. oz. 44.764283vc; 15.23 BMI Method: Exam Exam Vital Signs Date Time Temp Pulse Resp B/P (MAP) Pulse Ox O2 Delivery O2 Flow Rate FiO2 09/16/19 06:00 73 10 115/89 (98) 100 Mechanical Ventilator 21.00 09/16/19 05:00 72 8 136/74 (94) 100 Mechanical Ventilator 21.00 09/16/19 04:34 35.9 09/16/19 04:00 100 Mechanical Ventilator 21 09/16/19 04:00 68 15 134/66 (88) 100 Mechanical Ventilator 21.00 09/16/19 03:00 62 15 132/76 (94) 100 Mechanical Ventilator 21.00 09/16/19 02:34 61 16 100 25 09/16/19 02:22 Mechanical Ventilator 09/16/19 02:00 62 16 136/67 (90) 100 Mechanical Ventilator 21.00 09/16/19 01:00 62 16 146/74 (98) 100 Mechanical Ventilator 21.00 09/16/19 00:49 62 09/16/19 00:00 100 Mechanical Ventilator 21 09/16/19 00:00 61 15 123/69 (87) 100 Mechanical Ventilator 21.00 09/15/19 23:06 35.9 09/15/19 23:00 60 30 121/67 (85) 100 Mechanical Ventilator 21.00 09/15/19 22:43 Mechanical Ventilator 21.00 09/15/19 22:00 62 22 111/71 (84) 100 Mechanical Ventilator 25.00 09/15/19 21:45 65 16 100 25 09/15/19 21:17 Mechanical Ventilator 25.00 09/15/19 21:00 65 14 108/62 (77) 100 Mechanical Ventilator 30.00 09/15/19 20:25 Mechanical Ventilator 30.00 09/15/19 20:00 67 24 113/68 (83) 100 Mechanical Ventilator 35.00 09/15/19 20:00 100 Mechanical Ventilator 35 09/15/19 20:00 35.8 09/15/19 19:00 73 24 134/67 (89) 100 Mechanical Ventilator 35.00 1/19/20 18:50 79 09/15/19 18:35 71 24 100 35 09/15/19 18:00 75 23 129/75 (93) 100 Mechanical Ventilator 35.00 09/15/19 17:45 35.6 09/15/19 17:00 86 20 135/77 (96) 100 Mechanical Ventilator 35.00 09/15/19 16:28 90 24 100 35 09/15/19 16:23 91/53 09/15/19 16:00 129 20 143/84 (103) 93 Mechanical Ventilator 35.00 09/15/19 15:45 118 09/15/19 15:40 OxyMask 15.00 09/15/19 15:30 121 134/93 (107) 90 Mechanical Ventilator 35.00 09/15/19 15:28 113 18 127/68 93 OxyMask 10.00 09/15/19 11:18 35.0 98 20 130/76 (94) 98 OxyMask 15.00 09/15/19 11:18 OxyMask 8.00 I & O 09/16/19 07:00 Intake Total 2340 ml Output Total 1150 ml Balance 1190 ml Height & Weight Height: 4'10.00" Weight: 98lbs. oz. 44.085390uy; 15.23 BMI Method: General Appearance: WD/WN, Thin, Other (unresponsive) HEENT: PERRL/EOMI, Normal ENT Inspection, Other (small contents of food evacuated from the oral pharynx with suction.) Neck: Normal Inspection Respiratory: Decreased Breath Sounds Cardiovascular: No Edema, No Murmur Capillary Refill: Less Than 3 Seconds Extremity: Normal Inspection, No Pedal Edema Neurologic/Psychiatric: Other (unresponsive) Skin: Normal Color, Warm/Dry Lymphatic: No Adenopathy Results Lab Laboratory Tests 09/15/19 11:30 09/16/19 03:50 Assessment/Plan Assessment/Plan Acute respiratory failure secondary to aspiration -PT appears to be doing better after bronchoscopy. SHe is only requiring 21% oxygen -Will d/c sedation and extubate. -Start Zosyn and solumedrol -Family is ok for short term intubation for this acute event only. Severe dementia -Pt will probably need hospice care upon discharge -Will consult hospice for education Dysphagia -NPO HENRY LO DO Sep 16, 2019 07:04
--- NOTE | 2019-09-16 07:47 | Diagnostic Imaging Report ---
INDICATION: Respiratory failure. Portable upright AP view of the chest is obtained with comparison made study of one day earlier. FINDINGS: Heart size and pulmonary vascularity are within normal limits. There is no pneumothorax or consolidation. Endotracheal tube reaches the lower trachea just above the faraz. No pleural fluid is detected. Nasogastric tube is seen passing below the diaphragm. IMPRESSION: Stable appearance of chest without acute abnormality detected. Dictated by: Dictated on workstation # [id number]
--- NOTE | 2019-09-16 07:56 | NUR ---
PT extubated with RT at bedside. Placed on 2 liters NC sat. 100%. No acute distress. Tolerating without difficulty. No new complaints. Vitals have remained stable.
--- NOTE | 2019-09-16 08:14 | Occ Therapy Progress Note ---
Therapy Progress Note OT orders received and chart reviewed. Pt is currently sedated and on the ventilator. Due to being sedated/ventilator, he is not able to participate in skilled OT services. OT will continue to monitor pt and evaluate when medically stable and able to participate in skilled therapy. SHERIN STRANGE OT Sep 16, 2019 08:14
--- NOTE | 2019-09-16 08:21 | Physical Therapy Progress Note ---
Therapy Progress Note Patient is sedated on ventilator at this time. PT will continue to monitor patient status and resume therapy when applicable. FACUNDO SMITH PT Sep 16, 2019 08:21
--- NOTE | 2019-09-16 08:41 | History & Physical ---
History of Present Illness History of Present Illness Reason for visit/HPI PT IS AN 89 Y/O FEMALE WHO IS KNOWN TO ME FROM CLINIC. SHE HAS ADVANCED DEMENTIA - MOSTLY NON-VERBAL, AND WAS ADMITTED TO THE HOSPITAL AFTER AN ACUTE ASPIRATION EVENT. PER HOSPITAL REPORT- THE POLICE WERE CALLED TO THE [facility]IST[facility]IVING FAC[facility] WHERE SHE WAS FOUND TO BE UNRESPONSIVE, THEY SCOOPED FOOD OUT OF HER MOUTH AND IN THE ER, ON CHEST XRAY THERE WAS EVIDENCE OF ASPIRATED MATERIAL. Deondre LO WAS CALLED TO THE HOSPITAL FOR AN EMERGENT BRONCHOSCOPY TO ALLEVIATE FOOD BURDEN FROM HER LUNGS. SHE WAS STARTED ON IV ZOSYN AND ADMITTED TO THE ICU WHERE SHE WAS SCOPED AND INTUBATED. Date of Admission Sep 15, 2019 at 15:19 I consulted on this patient on 09/16/19 08:38 Attending Physician Yashira Youngblood MD Admitting Physician Yashira Youngblood MD Consult DR. LO Allergies and Home Medications Allergies Coded Allergies: No Known Drug Allergies (Unverified , 07/20/15) Home Medications Ampicillin Trihydrate 500 Mg Capsule, 500 MG PO Q6H Prescribed by: ROSE MARY FIORE on 07/22/15 1309 Docusate Sodium 100 Mg Capsule, 100 MG PO BID Prescribed by: ROSE MARY FIORE on 07/22/15 1308 Ibuprofen 600 Mg Tablet, 600 MG PO Q6H 1/2 tab po q 6 hrs prn Prescribed by: ROSE MARY FIORE on 07/22/15 1308 Mirtazapine 15 Mg Tablet, 15 MG PO HS, (Reported) Past Grvxusk-Neaszf-Remikf Hx Past Med/Social Hx: Reviewed Nursing Past Med/Soc Hx Patient Social History Alcohol Use: Denies Use Recreational Drug Use: No Smoking Status: Unknown if Ever Smoked 2nd Hand Smoke Exposure: No Recent Foreign Travel: No Contact w/other who traveled: No Recent Infectious Disease Expo: No Immunizations Up To Date Date of Influenza Vaccine: May 28, 2015 Past Medical History Neurological: Dementia History of Blood Disorders: No Family History Alcoholism 19 FATHER Physical Exam Vital Signs Vital Signs - First Documented 09/15/19 09/15/19 11:18 16:28 Temp 35.0 Pulse 98 Resp 20 B/P (MAP) 130/76 (94) Pulse Ox 98 O2 Delivery OxyMask O2 Flow Rate 8.00 FiO2 35 Capillary Refill : Less Than 3 Seconds Height, Weight, BMI Height: 4'10.00" Weight: 98lbs. oz. 44.754013dn; 15.23 BMI Method: Assessment/Plan Assessment and Plan ASPIRATION PNEUMONIA ADVANCED DEMENTIA Admission Diagnosis Admission Status: Inpatient Order (span 2 midnights) Reason for Inpatient Admission: INPT ADMISSION FOR ASPIRATION PNEUMONIA AND INTUBATION, ANTICIPATE AT LEAST 72+ HOURS. Clinical Quality Measures DVT/VTE Risk/Contraindication: Risk Factor Score Per Nursin RFS Level Per Nursing on Admit: 4+=Very High YASHIRA YOUNGBLOOD MD Sep 16, 2019 08:41
[2019-09-16] MEDS ORDERED: MULT1TAB69 PO (09:39)
[2019-09-16] MEDS ORDERED: CLON0.5T4 PO (09:39)
[2019-09-16] MEDS ORDERED: LACT10SO64 PO (09:39)
[2019-09-16] MEDS ORDERED: MELA5CAP PO (09:39)
[2019-09-16] MEDS ORDERED: CNC1KV INJ (09:39)
[2019-09-16] MEDS ORDERED: MIRT15TA6 PO (09:39)
[2019-09-16] MEDS ORDERED: RISP0.253 PO (09:39)
[2019-09-16] MEDS ORDERED: ACET325T38 PO (09:39)
--- NOTE | 2019-09-16 09:40 | NUR ---
UPDATED MED REC WITH MAR FROM [facility].
--- NOTE | 2019-09-16 10:48 | NUR ---
Pt transferred to 4th floor. Report given to MANI Crystal.
--- NOTE | 2019-09-16 10:52 | Occupational Therapy Eval ---
OT Evaluation-General/PLF Medical Diagnosis Admission Date Sep 15, 2019 at 15:19 Medical Diagnosis: aspiration pneumonia/advanced dementia Onset Date: Sep 15, 2019 Therapy Diagnosis Therapy Diagnosis: impaired ADLs and functional mobility Height/Weight Height (Feet): 4 Height (Inches): 10.00 Weight (Pounds): 98 Precautions Precautions/Isolations: Aspiration, Fall Prevention, Standard Precautions, Pressure Ulcer Safety Interventions: Bed Exit Alarm, Reorient-Attempt Referral Physician: Emily Referral Reason: Activity Tolerance, Evaluation/Treatment, Strengthening/ROM Medical History Current History Per H&P: "PT IS AN 89 Y/O FEMALE WHO IS KNOWN TO ME FROM CLINIC. SHE HAS ADVANCED DEMENTIA - MOSTLY NON-VERBAL, AND WAS ADMITTED TO THE HOSPITAL AFTER AN ACUTE ASPIRATION EVENT. PER HOSPITAL REPORT- THE POLICE WERE CALLED TO THE ASSISTED LIVING FACILITY WHERE SHE WAS FOUND TO BE UNRESPONSIVE, THEY SCOOPED FOOD OUT OF HER MOUTH AND IN THE ER, ON CHEST XRAY THERE WAS EVIDENCE OF ASPIRATED MATERIAL. DR. LO WAS CALLED TO THE HOSPITAL FOR AN EMERGENT B RONCHOSCOPY TO ALLEVIATE FOOD BURDEN FROM HER LUNGS. SHE WAS STARTED ON IV ZOSYN AND ADMITTED TO THE ICU WHERE SHE WAS SCOPED AND INTUBATED." Social History [facility] ADL-Prior Level of Function SCALE: Activities may be completed with or without assistive devices. 4-Fjtklzbrfu-lzklimw completes the activity by him/herself with no assistance from a helper. 5-Set-up or Clean-up Assistance-helper sets up or cleans up; patient completes activity. Elba assists only prior to or following the activity. 4-Supervision or Touching Assistance-helper provides verbal cues and/or touching/steadying and/or contact guard assistance as patient completes activity. Assistance may be provided throughout the activity or intermittently. 3-Partial/Moderate Assistance-helper does LESS THAN HALF the effort. Elba lifts, holds or supports trunk or limbs, but provides less than half the effort. 2-Substantial/Maximal Assistance-helper does MORE THAN HALF the effort. Elba lifts or holds trunk or limbs and provides more than half the effort. 9-Cjkzkajwr-sttdqt does ALL the effort. Patient does none of the effort to complete the activity. Or, the assistance of 2 or more helpers is required for the patient to complete the activity. If activity was not attempted, code reason: 7-Patient Refused. 9-Not Applicable-not attempted and the patient did not perform the activity before the current illness, exacerbation or injury. 10-Not Attempted due to Environmental Limitations-(lack of equipment, weather restraints, etc.). 88-Not Attempted due to Medical Conditions or Safety Concerns. ADL PLOF Comments Per nursing, pt requires total assistance at baseline, and she has advanced dementia. Self Care: Needed Some Help Functional Cognition: Needed Some Help OT Current Status Subjective Pt sitting up in bed with aide present. Aide reports pt is trying to get out of the bed. Pt confused throughout session, she was unable to follow simple instructions/demonstrations. She was unable to report if she was having any pain. OT talked with nursing who reports pt is at her baseline. Mental Status/Objective Patient Orientation: Confused Attachments: IV, Oxygen, SCD's Current Upper Extremity ROM pt unable to follow ROM screening, OT attempted PROM BUE shoulder to 90 degrees with pt resisting movements. PROM elbows WFL. Upper Extremity Coordination unable to assess due to confusion Upper Extremity Sensation unable to assess due to confusion Upper Extremity Strength unable to assess due to confusion Other Treatments Pt seated upright with legs extended in bed. She was trying to move the covers in order to get out of the bed. OT and aide attempted to instruct pt to stay in the bed, pt still attempted to get up. OT asked pt simple yes/no questions, pt did not respond appropriately. OT then attempted to have pt follow simple instruction/demonstration for ROM screen, pt did not initiate movements. OT trialed PROM movements and pt resisted arm movements. OT talked with nursing about pt's position and her attempting to get out of bed. Nurse reports pt is at her baseline level. Post OT session, pt sitting upright in bed with aide present. Education OT Patient Education: Correct positioning, Modified ADL techniques, Progress toward Goal/Update tx plan, Purpose of tx/functional activities, Safety issues Teaching Recipient: Patient Teaching Methods: Demonstration, Discussion Response to Teaching: Unable to Return Demonstration, Unable to Comprehend OT Display Specialist Goals Fpc Goals 1=Demonstrate adherence to instructed precautions during ADL tasks. 2=Patient will verbalize/demonstrate understanding of assistive devices/modifications for ADL. 3=Patient will improve strength/tolerance for activity to enable patient to perform ADL's. OT Education/Plan Problem List/Assessment Pt is unable to participate in skilled OT services at this time due to increased confusion and being unable to follow simple instruction/demonstration. Pt is also currently functioning at her baseline level. Skilled OT services are not indicated at this time due to being unable to follow directions and pt functioning at PLOF. Discharge Recommendations Plan/Recommendations: Discharge/Goals Met Therapy Discharge Recommendati: 24 Hour Supervision Treatment Plan/Plan of Care Patient would benefit from OT for education, treatment and training to promote independence in ADL's, mobility, safety and/or upper extremity function for ADL's. Plan of Care: OTHER (eval only) Treatment Duration: Sep 16, 2019 Frequency: 1 time per week (eval only) Estimated Hrs Per Day: .25 hour per day (eval only) Time/GCodes Start Time: 10:33 Stop Time: 10:42 Total Time Billed (hr/min): 9 Billed Treatment Time 1, EVSHERIN ASHLEY OT Sep 16, 2019 10:52
--- NOTE | 2019-09-16 11:00 | NUR ---
PT ARRIVED TO ROOM 426 VIA BED AT THIS TIME. KARRIE LAWS TO BEDSIDE FOR VISITING TEACHER.
--- NOTE | 2019-09-16 12:39 | NUR ---
Received dietary consult regarding pt's vent status. Note pt has been extubated and moved to Room 426. Note pt has PMH of advanced dementia and is a poor historian. Will attempt to evaluate pt when family is present to received diet hx. Will continue to follow and reassess as pt needs and status change. Reginald Waddell, , RD, LD
[2019-09-16] MEDS ORDERED: HALOPERIDOL 5 MG/ML (HALDOL) AMP IM PRN (13:45)
--- NOTE | 2019-09-16 13:49 | NUR ---
IV INFILTRATED AND REMOVED. UPDATED DR SANCHEZ. ORDERS RECEIVED TO ROM MARQUEZ, GIVE 1GM ROCEPHIN IM AND START DAILY AT 9AM 09/17/2019. IM HALDOL 1MG Q6H PRN AGITATION/ANXIETY, HOLD FIRST DOSE UNTIL SEEN BY SPEECH THERAPY THIS AFTERNOON. MAY LEAVE IV OUT AND THIS RN TO NOTIFY [facility] FOR EVALUATION FOR ADMIT 09/17/2019. ORDERS ENTERED AND CARRIED OUT
--- NOTE | 2019-09-16 14:10 | NUR ---
PT FAMILY REQUEST THAT ROCEPHIN IM NOT BE GIVEN UNTIL AFTER SPEACH THERAPY IN FOR SWALLOW EVAL D/T PT AGITATION
[2019-09-16] MEDS ORDERED: LIDOCAINE 1% INJ 20 ML 20 ML VIAL INJ NR (14:30)
[2019-09-16] MEDS ORDERED: cefTRIAXone 1,000 MG/2.86 ml vial (IM ONLY) IM NR (14:30)
--- NOTE | 2019-09-16 15:21 | Physical Therapy Evaluation ---
PT Evaluation-General Medical Diagnosis Admission Date Sep 15, 2019 at 15:19 Medical Diagnosis: aspiration pneumonia/advanced dementia Onset Date: Sep 15, 2019 Therapy Diagnosis Therapy Diagnosis: Debility/Deconditioning Height/Weight Height (Feet): 4 Height (Inches): 10.00 Weight (Pounds): 98 Precautions Precautions/Isolations: Aspiration, Fall Prevention, Standard Precautions, Pressure Ulcer Referral Physician: Emily Reason for Referral: Evaluation/Treatment Medical History Pertinent Medical History: Dementia Current History Patient presented to the unresponsive found by EMS. Social History Home: [facility] Prior Prior Level of Function SCALE: Activities may be completed with or without assistive devices. 4-Xbqxssidgo-bmvfywp completes the activity by him/herself with no assistance from a helper. 5-Set-up or Clean-up Assistance-helper sets up or cleans up; patient completes activity. [place] assists only prior to or following the activity. 4-Supervision or Touching Assistance-helper provides verbal cues and/or touching/steadying and/or contact guard assistance as patient completes activity. Assistance may be provided throughout the activity or intermittently. 3-Partial/Moderate Assistance-helper does LESS THAN HALF the effort. [place] lifts, holds or supports trunk or limbs, but provides less than half the effort. 2-Substantial/Maximal Assistance-helper does MORE THAN HALF the effort. [place] lifts or holds trunk or limbs and provides more than half the effort. 3-Mhsdbsizm-vdxdrf does ALL the effort. Patient does none of the effort to complete the activity. Or, the assistance of 2 or more helpers is required for the patient to complete the activity. If activity was not attempted, code reason: 7-Patient Refused. 9-Not Applicable-not attempted and the patient did not perform the activity before the current illness, exacerbation or injury. 10-Not Attempted due to Environmental Limitations-(lack of equipment, weather restraints, etc.). 88-Not Attempted due to Medical Conditions or Safety Concerns. Bed Mobility: 5 Transfers (B,C,W/C): 5 Gait: 4 Indoor Mobility (Ambulation): Needed Some Help PT Evaluation-Current Subjective Patient and family agreeable to therapy at this time. Objective Patient Orientation: Confused Attachments: Iqbal Catheter ROM/Strength Strength Lower Extremities WFL BLE Integumentary/Posture Integumentary See nursing notes. Bowel Incontinence: Yes Bladder Incontinence: Iqbal Cath Neuromuscular (Tone, Coordination, Reflexes) Grossly intact. Sensory Vision: Functional Hearing: Functional Sensation Right Lower Extremit: Intact Sensation Left Lower Extremity: Intact Transfers Roll Left to Right (QC): 3 Lying to Sitting/Side of Bed(Q: 3 Sit to Stand (QC): 3 Chair/Bjj-vg-Adbzj Xfer(QC): 3 Gait Does the Patient Walk?: Yes Mode of Locomotion: Walk Anticipated Mode of Locomotion: Walk Walk 10 feet (QC): 3 Walk 50 ft with 2 Turns(QC): 3 Distance: 50' Comments/Gait Description Patient started with walker but was difficult for patient to use so switched to no AD. Wheelchair Training Does the Pt Use a Wheelchair?: No Balance Sitting Static: Fair Sitting Dynamic: Fair Standing Static: Fair Standing Dynamic: Fair Assessment/Needs Patient is able to follow commands when asked. When ambulating patient struggled using the walker and performed better with no AD. Patient was unsteady during ambulation and needs skilled services for safety and to aide patient in retu rning to assisted living at her maximum LOF. Rehab Potential: Guarded PT Perinatal Coordinator Goals Perinatal Coordinator Goals PT Perinatal Coordinator Goals Time Frame: Sep 23, 2019 Roll Left & Right (QC): 4 Sit to Lying (QC): 4 Lying-Sitting on Side/Bed(QC): 4 Sit to Stand (QC): 4 Chair/Mkf-ov-Etxhr Xfer(QC): 4 Does the Patient Walk: Yes Walk 10 feet (QC): 4 Walk 50ft with 2 Turns (QC): 4 Walk 150 ft (QC): 4 PT Plan Problem List Problem List: Activity Tolerance, Functional Strength, Safety, Balance, Gait, Transfer, Bed Mobility, ROM Treatment/Plan Treatment Plan: Continue Plan of Care Treatment Plan: Bed Mobility, Education, Functional Activity Zach, Functional Strength, Gait, Safety, Therapeutic Exercise, Transfers Treatment Duration: Sep 23, 2019 Frequency: 5 times per week Estimated Hrs Per Day: .25 hour per day Patient and/or Family Agrees t: Yes Safety Risks/Education Patient Education: Transfer Techniques Teaching Recipient: Patient Teaching Methods: Discussion Response to Teaching: Reinforcement Needed Time/GCodes Time In: 1449 Time Out: 1500 Total Billed Treatment Time: 11 Total Billed Treatment 1 visit EVM (11 minutes) FACUNDO SMITH PT Sep 16, 2019 15:21
--- NOTE | 2019-09-16 15:32 | ST Dysphagia Evaluation ---
Speech Evaluation-General Medical Diagnosis aspiration pneumonia/advanced dementia Onset Date: Sep 15, 2019 Therapy Diagnosis Therapy Diagnosis: Oropharyngeal Dysphagia Precautions Precautions: Aspiration Referral Referring Physician: Dr. Youngblood Medical History Pertinent Medical History: Dementia Reviewed History: Yes Social History Home: Assisted Living (Patient was living in an assisted living facility for approximately one month.) Speech PLF/Current-Dysphagia Prior Level of Function Patient was living in assisted living prior to acute admission. Subjective Patient was alert for the duration of the evaluation. Patient was sitting upright in her chair throughout the evaluation. Cognitive Status Patient Orientation: Non-Verbal/Aphasic, Eyes Open Moderate dementia Oral Motor Skills Dentition: Edentalous Current Food Consistancy: Pureed (Patient family members reported that she was on a pureed diet at the assisted living facility; however, some how ingested a hot dog that was lodged in her throat over the weekend.) Ability to Follow Directions: Poor (Patient was observed to only follow simple directions.) Oral Expression Ability: Moderate Impairment (Patient only responded to yes/no questions.) Face Facial Symmetry: Symmetrical Oral-Facial Assessment Oral-Facial Dentition: Normal Labial Seal Description: Normal Smile: Normal Lingual Protrusion: Normal Dysphagia Evaluation Consistencies Presented: Thin Liquid, [place] Thick Liquid, Honey Thick Liquid, Pureed Oral Phase: Reduced Oral Transit Pharyngeal Phase: Delayed Swallow Patient presented with a delayed swallow initiation and required verbal cues to initiate swallow. Funct. Velo/Pharyngeal Symptom: Cough After Swallow Dietary Recommendations: Pureed Liquid Recommendations: Honey Consistancy Swallowing Precautions: Alternate Liquids/Solids, Double Swallow, Decreased Bolus 1/2 Tsp, Liquids from Spoon, No Straw, Oral Supervision Staff, Oral Supervision Caregiver, Small Bites and Sips, Sitting Upright 90 Degrees, Sitting 90 Degrees 30 Post Intake Dysphagia Evaluation Summary Patient was admitted to the acute floor s/p acute aspiration event. Patient was presented thin liquid consistency via 1/2 tsp spoon and straw which resulted in an immediate cough. Patient was then presented with honey consistency via 1/2 tsp spoon which resulted in a delayed swallow and cough. Patient was presented with nectar thickened consistency via 1/2 tsp spoon and no s/s of aspiration were noted. Patient was presented with pureed consistency via 1/2 tsp spoon and no s/s of aspiration were noted; however, required verbal cues to initiate swallow function. Patient presents with moderate oropharyngeal dysphagia. It is recommended that patient be on a DYSPHAGIA I diet with honey thickened liquids while supervised during mealtime to ensure safe and efficient oral intake. Barriers to Learning Moderate cognitive deficits Speech Short Term Goals Short Term Goals Short Term Goals 1) Patient will tolerate least restrictive diet level without s/s of aspiration at 90% with feeding assistance. 2) Patient/caregiver will utilize compensatory strategies as trained at 90% with minimal cuing. Speech Chaser Apprentice Goals [facility] Goals Patient will maintain adequate nutrition/hydration via safe effective swallow function. Speech-Plan Patient/Family Goals Patient/Family Goals: Family reported that they wish for the patient to recieve adequate nutrition via safe oral intake. Treatment Plan Speech Therapy Treatment Plan: Continue Plan of Care Frequency: 2 times per week Estimated Hrs Per Day: .25 hour per day Rehab Potential: Guarded Barriers to Learning: Moderate cognitive deficits Pt/Family Agrees to Plan: Yes Safety Risks/Education Teaching Recipient: Patient, Family Teaching Methods: Demonstration, Discussion Response to Teaching: Return Demonstration, Reinforcement Needed Education Topics Provided: Patients family were provided education on the importance of skilled staff to facilitate safe oral intake during all mealtimes and when taking medications. Additionally, patients family were educated on the progression of the swallow function and possible symptoms to be aware of as the patient progresses through the stages of dementia. Time Speech Therapy Time In: 15:15 Speech Therapy Time Out: 15:30 Total Billed Time: 15 Billed Treatment Time SeraDILLON [address] Sep 16, 2019 15:32
[2019-09-16] MEDS: FAMOTIDINE 20MG/2ML IV (PEPCID) IV SCH (20:36)
[2019-09-17 00:05] VITALS: BP 143/75
[2019-09-17] MEDS: inSUlin ASPART (NovoLOG) 1 UNIT/0.01 ML (CHARGE PER UNIT) SQ SCH ×2 (00:50→07:42)
[2019-09-17] MEDS: RT-ALBUTEROL/IPRATROPIUM 3 ML (DUONEB) VIAL INH SCH ×2 (03:17→07:19)
[2019-09-17 04:09] VITALS: BP 166/84
[2019-09-17 07:05] LABS: BASOPHILS % (AUTO) 0 % (0-10); EOSINOPHILS % (AUTO) 0 % (0-10); HEMATOCRIT 35 % (35-52); HEMOGLOBIN 11.3 G/DL (11.5-16.0); LYMPHOCYTES # (AUTO) 1.5 X 10^3 (1.0-4.0); LYMPHOCYTES % (AUTO) 8 % (12-44); MEAN CORPUSCULAR HEMOGLOBIN 30 PG (25-34); MEAN CORPUSCULAR HGB CONC 33 G/DL (32-36); MEAN CORPUSCULAR VOLUME 92 FL (80-99); MEAN PLATELET VOLUME 11.4 FL (7.4-10.4); MONOCYTES # (AUTO) 1.1 X 10^3 (0.0-1.0); MONOCYTES % (AUTO) 6 % (0-12); NEUTROPHILS % (AUTO) 86 % (42-75); PLATELET COUNT 204 10^3/uL (130-400); RED CELL DISTRIBUTION WIDTH 14.1 % (10.0-14.5); WHITE BLOOD COUNT 18.6 10^3/uL (4.3-11.0)
--- NOTE | 2019-09-17 07:39 | Pulmonary Progress Note ---
Sepsis Event Evaluation Height, Weight, BMI Height: 4'10.00" Weight: 98lbs. oz. 44.571473ep; 15.23 BMI Method: Exam Exam Vital Signs Date Time Temp Pulse Resp B/P (MAP) Pulse Ox O2 Delivery O2 Flow Rate FiO2 09/17/19 07:23 97 Room Air 09/17/19 04:09 36.9 101 14 166/84 (111) 99 Room Air 09/17/19 03:17 91 Room Air 09/17/19 00:09 37.0 09/17/19 00:05 108 19 143/75 (97) 98 Room Air 09/16/19 23:00 92 Room Air 09/16/19 20:00 36.9 115 16 130/62 (84) 97 Room Air 09/16/19 19:13 90 Room Air 09/16/19 15:57 36.2 104 16 122/64 (83) 91 Room Air 09/16/19 15:02 96 Nasal Cannula 2.00 09/16/19 11:00 36.5 97 16 117/59 (78) 97 Room Air 09/16/19 11:00 Room Air 09/16/19 10:08 97 Nasal Cannula 2.00 09/16/19 10:00 93 15 129/70 (89) 100 Room Air 09/16/19 09:00 107 13 132/79 (96) 98 Room Air 09/16/19 08:00 106 22 156/88 (110) 99 Room Air 09/16/19 08:00 35.2 09/16/19 08:00 Nasal Cannula 2.00 09/16/19 07:56 100 Room Air I & O 09/17/19 07:00 Intake Total 100 ml Output Total 650 ml Balance -550 ml Height & Weight Height: 4'10.00" Weight: 98lbs. oz. 44.326101ub; 15.23 BMI Method: General Appearance: WD/WN, Thin HEENT: PERRL/EOMI, Normal ENT Inspection Neck: Normal Inspection Respiratory: Decreased Breath Sounds Cardiovascular: No Edema, No Murmur Capillary Refill: Less Than 3 Seconds Extremity: Normal Inspection, No Pedal Edema Neurologic/Psychiatric: Other (unresponsive) Skin: Normal Color, Warm/Dry Lymphatic: No Adenopathy Results Lab Laboratory Tests 09/15/19 11:30 09/16/19 03:50 Assessment/Plan Assessment/Plan Acute respiratory failure secondary to aspiration -PT appears to be doing better after bronchoscopy. SHe is only requiring 21% oxygen -Will d/c sedation and extubate. -Zosyn --was changed to Rocephin 09/16 -Repeat labs pending Severe dementia - Dysphagia -speech therapy following HENRY LO DO Sep 17, 2019 07:38
[2019-09-17 07:46] LABS: CALCIUM 8.5 MG/DL (8.5-10.1); CREATININE SERUM 0.93 MG/DL (0.60-1.30); POTASSIUM 3.9 MMOL/L (3.6-5.0)
[2019-09-17 08:00] VITALS: BP 133/63
[2019-09-17 08:01] LABS: BAND NEUTROPHILS 0 %; BASOPHILS % (MANUAL) 0 %; EOSINOPHILS % (MANUAL) 0 %; LYMPHOCYTES % (MANUAL) 10 %; MONOCYTES % (MANUAL) 3 %; NEUTROPHILS % (MANUAL) 87 %; RBC MORPH NORMAL
--- NOTE | 2019-09-17 08:54 | Progress Note ---
Subjective Date Seen by a Provider: Sep 17, 2019 Time Seen by a Provider: 08:30 Objective Exam Last Set of Vital Signs Vital Signs Date Time Temp Pulse Resp B/P (MAP) Pulse Ox O2 Delivery O2 Flow Rate FiO2 09/17/19 07:23 97 Room Air 09/17/19 04:09 36.9 101 14 166/84 (111) 09/16/19 15:02 2.00 09/16/19 06:55 21 Capillary Refill : Less Than 3 Seconds I&O Intake and Output 09/17/19 00:00 Intake Total 1320 ml Output Total 875 ml Balance 445 ml Intake Oral 100 ml IV Total 1220 ml Output Urine Total 875 ml Results Lab Laboratory Tests 09/16/19 11:12: Glucometer 135H 09/16/19 17:19: Glucometer 159H 09/17/19 00:13: Glucometer 103 09/17/19 06:29: White Blood Count 18.6H, Red Blood Count 3.76L, Hemoglobin 11.3L, Hematocrit 35, Mean Corpuscular Volume 92, Mean Corpuscular Hemoglobin 30, Mean Corpuscular Hemoglobin Concent 33, Red Cell Distribution Width 14.1, Platelet Count 204, Mean Platelet Volume 11.4H, Neutrophils (%) (Auto) 86H, Lymphocytes (%) (Auto) 8L, Monocytes (%) (Auto) 6, Eosinophils (%) (Auto) 0, Basophils (%) (Auto) 0, Neutrophils # (Auto) 16.0H, Lymphocytes # (Auto) 1.5, Monocytes # (Auto) 1.1H, Eosinophils # (Auto) 0.0, Basophils # (Auto) 0.0, Neutrophils % (Manual) 87, Lymphocytes % (Manual) 10, Monocytes % (Manual) 3, Eosinophils % (Manual) 0, Basophils % (Manual) 0, Band Neutrophils 0, Blood Morphology Comment NORMAL, Sodium Level 143, Potassium Level 3.9, Chloride Level 108H, Carbon Dioxide Level 23, Anion Gap 12, Blood Urea Nitrogen 14, Creatinine 0.93, Estimat Glomerular Filtration Rate 57, BUN/Creatinine Ratio 15, Glucose Level 85, Calcium Level 8.5, Magnesium Level 2.0, Triglycerides Level 59 09/17/19 06:31: Glucometer 115H Microbiology 09/15/19 Gram Stain - Final, Resulted 09/15/19 Bronchial Culture - Preliminary, Resulted Gram Negative Kaleb 09/15/19 Urine Culture - Preliminary, Resulted Gram Negative Kaleb Probable Enterococcus Species Clinical Quality Measures Admission Status Admission Dx ASPIRATION PNEUMONIA ADVANCED DEMENTIA DVT/VTE Risk/Contraindication: Risk Factor Score Per Nursin RFS Level Per Nursing on Admit: 4+=Very High YASHIRA SANCHEZ MD Sep 17, 2019 08:54
[2019-09-17] MEDS ORDERED: FLUC150T PO (08:59)
[2019-09-17] MEDS ORDERED: CEPH500T PO (08:59)
[2019-09-17] MEDS ORDERED: LIDOCAINE 1% INJ 20 ML 20 ML VIAL INJ SCH (09:00)
[2019-09-17] MEDS ORDERED: cefTRIAXone 1,000 MG/2.86 ml vial (IM ONLY) IM SCH (09:00)
--- NOTE | 2019-09-17 09:00 | Discharge Inst-Complex ---
PDI Reconcile Patient Problems Problems Reviewed?: Yes Med Rec & Follow Up Appt. New Medications: Cephalexin (Cephalexin) 500 Mg Tablet 500 MG PO TID, #15 TAB Fluconazole (Diflucan) 150 Mg Tablet 150 MG PO DAILY, #5 TAB Continued Medications: Acetaminophen (Tylenol) 325 Mg Tablet 325 MG PO Q6H PRN for PAIN-MILD (1-4), TAB Clonazepam (Clonazepam) 0.5 Mg Tablet 0.25 MG PO TID, TAB TAKES 1/2 (0.5MG) TABLET Cyanocobalamin (Cyanocobalamin Injection) 1,000 Mcg/Ml Inj 1000 MCG INJ MONTHLY, EA Lactulose (Constulose) 10 Gm/15 Ml Solution 1 TBS PO BID, EA Melatonin (Melatonin) 5 Mg Capsule 5 MG PO HS, CAP Mirtazapine (Mirtazapine) 15 Mg Tablet 15 MG PO HS, TAB Multivitamin (Multivitamins) 1 Each Tablet 1 TAB PO DAILY, TAB Risperidone (Risperidone) 0.25 Mg Tablet 0.25 MG PO TID, TAB Activity, Diet and PDI Resume Normal Activity: Yes Discharge Diet: Other Diet (START DIET PER SPEECH THERAPY RECOMMENDATIONS) Driving Instructions: No Driving/Refer to Return to The Hospital For: CALL HOSPICE PRIOR TO TRANSPORT TO HOSPITAL Symptoms to Reoprt to : Pain/Pressure in Chest, Nausea/Vomiting YASHIRA SANCHEZ MD Sep 17, 2019 09:00
--- NOTE | 2019-09-17 09:01 | Discharge Summary ---
Diagnosis/Chief Complaint Date of Admission Sep 15, 2019 at 15:19 Date of Discharge Discharge Date: Sep 17, 2019 Discharge Time: 1000 Reason Hospital Visit PT IS AN 89 Y/O FEMALE WHO IS KNOWN TO ME FROM CLINIC. SHE HAS ADVANCED DEMENTIA - MOSTLY NON-VERBAL, AND WAS ADMITTED TO THE HOSPITAL AFTER AN ACUTE ASPIRATION EVENT. PER HOSPITAL REPORT- THE POLICE WERE CALLED TO THE ASSISTED LIVING FACILITY WHERE SHE WAS FOUND TO BE UNRESPONSIVE, THEY SCOOPED FOOD OUT OF HER MOUTH AND IN THE ER, ON CHEST XRAY THERE WAS EVIDENCE OF ASPIRATED MATERIAL. DR. LO WAS CALLED TO THE HOSPITAL FOR AN EMERGENT BRONCHOSCOPY TO ALLEVIATE FOOD BURDEN FROM HER LUNGS. SHE WAS STARTED ON IV ZOSYN AND ADMITTED TO THE ICU WHERE SHE WAS SCOPED AND INTUBATED. Discharge Summary Discharge Physical Examination Allergies: Coded Allergies: No Known Drug Allergies (Unverified , 07/20/15) Vitals & I&Os Vital Signs Date Time Temp Pulse Resp B/P (MAP) Pulse Ox O2 Delivery O2 Flow Rate FiO2 09/17/19 07:23 97 Room Air 09/17/19 04:09 36.9 101 14 166/84 (111) 09/16/19 15:02 2.00 09/16/19 06:55 21 Hospital Course Pending Labs Laboratory Tests 09/17/19 06:29: White Blood Count 18.6, Red Blood Count 3.76, Hemoglobin 11.3, Hematocrit 35, Mean Corpuscular Volume 92, Mean Corpuscular Hemoglobin 30, Mean Corpuscular Hemoglobin Concent 33, Red Cell Distribution Width 14.1, Platelet Count 204, Mean Platelet Volume 11.4, Neutrophils (%) (Auto) 86, Lymphocytes (%) (Auto) 8, Monocytes (%) (Auto) 6, Eosinophils (%) (Auto) 0, Basophils (%) (Auto) 0, Neutrophils # (Auto) 16.0, Lymphocytes # (Auto) 1.5, Monocytes # (Auto) 1.1, Eosinophils # (Auto) 0.0, Basophils # (Auto) 0.0, Neutrophils % (Manual) 87, Lymphocytes % (Manual) 10, Monocytes % (Manual) 3, Eosinophils % (Manual) 0, Basophils % (Manual) 0, Band Neutrophils 0, Blood Morphology Comment NORMAL, Sodium Level 143, Potassium Level 3.9, Chloride Level 108, Carbon Dioxide Level 23, Anion Gap 12, Blood Urea Nitrogen 14, Creatinine 0.93, Estimat Glomerular Filtration Rate 57, BUN/Creatinine Ratio 15, Glucose Level 85, Calcium Level 8.5, Magnesium Level 2.0, Triglycerides Level 59 09/17/19 06:31: Glucometer 115 Discharge Instructions to patient/family Please see electronic discharge instructions given to patient. Discharge Medications Reviewed and agree with Discharge Medication list on patient's Discharge Instruction sheet Clinical Quality Measures DVT/VTE Risk/Contraindication: Risk Factor Score Per Nursin RFS Level Per Nursing on Admit: 4+=Very High YASHIRA SANCHEZ MD Sep 17, 2019 09:01
--- NOTE | 2019-09-17 11:15 | NUR ---
Spoke with patient's son regarding POC for discharge. Son reports having spoken to Rox at [facility] where patient has resided since the beginning of August they have reported that they will take the patient back and this is the plan...then was called to the room as they called the on and said they really didn't want to take her back. Now am sending referral for admission to SNFs for residential fpc care. Addendum: 09/17/19 at 1232 by LANCE HAIDER RN Patient was discharge to [facility]; while I was sending referral to [facility]. Soewhere wires got crossed...but all is well. Called Rox at [facility] and let her know a referral was sent to [facility] for hopeful admission today. I will let them know if they agree to her admission.
--- NOTE | 2019-09-17 12:10 | NUR ---
PT DISCHARGED TO [facility]. REPORT GIVEN TO NURSE PEACE. PT SON HERE AND OBTAINED ALL PERSONAL BELONGINGS. NO ITEMS FOUND LEFT IN ROOM AT THIS TIME.
--- NOTE | 2019-09-17 12:51 | NUR ---
This RN has spoken with [facility] and made them aware that the patient has returned to the [facility]. I explained the [facility] really cannot provide for her as needed and they would like them to consider admission today. Dr. Youngblood made aware of the son's refusal of hospice and that we are looking at a different living arrangement for her with [facility].
== END 2019-09-17 12:10 | DRG 163 ==
LOC: EDUNIT# 11:18 → ER 11:20 → ICU 15:19 → 4TH 09-16 11:03
PROVIDERS: ADMIT Internal Medicine; ATTEND Family Medicine
PROC: 0BCD8ZZ Extirpation of Matter from Right Middle Lung Lobe, Via Natural or Artificial Opening Endoscopic (ICD-10-PCS; principal; 2019-09-15)
PROC: 0BCF8ZZ Extirpation of Matter from Right Lower Lung Lobe, Via Natural or Artificial Opening Endoscopic (ICD-10-PCS; 2019-09-15)
PROC: 0CCM8ZZ Extirpation of Matter from Pharynx, Via Natural or Artificial Opening Endoscopic (ICD-10-PCS; 2019-09-15)
PROC: 0BH17EZ Insertion of Endotracheal Airway into Trachea, Via Natural or Artificial Opening (ICD-10-PCS; 2019-09-15)
PROC: 5A1935Z Respiratory Ventilation, Less than 24 Consecutive Hours (ICD-10-PCS; 2019-09-15)
DX: T17.820A Food in other parts of respiratory tract causing asphyxiation, initial encounter (principal); T17.520A Food in bronchus causing asphyxiation, initial encounter; T17.220A Food in pharynx causing asphyxiation, initial encounter; J96.01 Acute respiratory failure with hypoxia; J69.0 Pneumonitis due to inhalation of food and vomit; F03.90 Unspecified dementia, unspecified severity, without behavioral disturbance, psychotic disturbance, mood disturbance, and anxiety; R13.10 Dysphagia, unspecified; Z66 Do not resuscitate
CPT/HCPCS: 36415; 51702; 70450; 70491; 71045; 71275; 80048; 80053; 80061; 81000; 82805; 82962; 83735; 83880; 84100; 84478; 84484; 85007; 85025; 85027; 85379; 85610; 85730; 87070; 87077; 87081; 87088; 87186; 87205; 93005; 93041; 94002; 94003; 94640; 94799; 96374; 96375